=== PATIENT | female | born 1960 ===

== ENCOUNTER 2022-01-20 19:46 | Emergency (ER) | payer OTHER ==
[2022-01-20 21:05] VITALS: BP 175/89
--- NOTE | 2022-01-20 21:37 | XRay Report ---
Chest with left RIBS 2 views HISTORY: Left rib pain. FINDINGS: Heart size is normal. The lungs are clear. Mild irregularity at the right sixth rib anterolaterally is likely a nondisplaced fracture. Signer Name: Shalom Katz MD Signed: 01/20/2022 9:33 PM Workstation Name: [id number]
== END 2022-01-21 04:29 | disposition left against medical advice (07) ==
LOC: ED 19:46
DX: R07.81 Pleurodynia (principal); Z53.21 Procedure and treatment not carried out due to patient leaving prior to being seen by health care provider